=== PATIENT | female | born 1940 | race Caucasian/White ===

== ENCOUNTER 2019-01-19 13:28 | Inpatient (IN) | payer OTHER ==
[~2019-01-19] VITALS: Ht 154.9 cm; Wt 136.1 kg
[2019-01-19] MEDS ORDERED: GLIPIZIDE XL10 MG (13:59)
[2019-01-19] MEDS ORDERED: DAFLONEX-XL 11300 MG (14:00)
[2019-01-19] MEDS ORDERED: LASIX20 MG (14:00)
[2019-01-19] MEDS ORDERED: TOPROL XL25 M1 (14:01)
[2019-01-19] MEDS ORDERED: ALDACTONE25 MG (14:01)
[2019-02-13] MEDS ORDERED: RISPERIDONE0.5 MG PO (19:41)
[2019-02-13] MEDS ORDERED: TOPROL XL50 M1 PO (19:41)
[2019-02-13] MEDS ORDERED: LOSARTAN POTASS25 MG PO (19:41)
[2019-02-13] MEDS ORDERED: SERTRALINE HCL50 MG PO (19:42)
[2019-03-06] MEDS ORDERED: METFORMIN HCL500 M3 PO (14:05)
[2019-03-06] MEDS ORDERED: LASIX20 MG PO (14:05)
== END 2019-03-06 17:57 | disposition home or self-care (01) | DRG 637 ==
LOC: ER 13:28 → MEDJ 01-20 17:50 → SEC-K 01-20 17:50 → MEDJ 01-20 17:58 → ER 01-20 21:21 → MEDJ 02-09 10:43
PROVIDERS: ADMIT Internal Medicine
PROC: B246ZZZ Ultrasonography of Right and Left Heart (ICD-10-PCS; principal; 2019-01-20)
PROC: 4A033R1 Measurement of Arterial Saturation, Peripheral, Percutaneous Approach (ICD-10-PCS; 2019-01-20)
PROC: B44HZZZ Ultrasonography of Bilateral Lower Extremity Arteries (ICD-10-PCS; 2019-01-21)
PROC: 4A12X4Z Monitoring of Cardiac Electrical Activity, External Approach (ICD-10-PCS; 2019-01-21)
PROC: 5A09457 Assistance with Respiratory Ventilation, 24-96 Consecutive Hours, Continuous Positive Airway Pressure (ICD-10-PCS; 2019-01-23)
DX: E11.628 Type 2 diabetes mellitus with other skin complications (principal); I50.43 Acute on chronic combined systolic (congestive) and diastolic (congestive) heart failure; J96.01 Acute respiratory failure with hypoxia; L03.116 Cellulitis of left lower limb; L03.115 Cellulitis of right lower limb; I13.0 Hypertensive heart and chronic kidney disease with heart failure and stage 1 through stage 4 chronic kidney disease, or unspecified chronic kidney disease; E87.2 Acidosis; Z99.11 Dependence on respirator [ventilator] status; F32.1 Major depressive disorder, single episode, moderate; M62.81 Muscle weakness (generalized); I08.0 Rheumatic disorders of both mitral and aortic valves; N18.2 Chronic kidney disease, stage 2 (mild); N17.8 Other acute kidney failure; B37.2 Candidiasis of skin and nail; E66.01 Morbid (severe) obesity due to excess calories; G47.33 Obstructive sleep apnea (adult) (pediatric); E11.22 Type 2 diabetes mellitus with diabetic chronic kidney disease; E11.51 Type 2 diabetes mellitus with diabetic peripheral angiopathy without gangrene; Z79.4 Long term (current) use of insulin